=== PATIENT | male | born 1995 | race Caucasian/White ===

== ENCOUNTER 2018-03-02 20:13 | Emergency (ER) | payer OTHER ==
[~2018-03-02] VITALS: Ht 172.7 cm; Wt 81.6 kg
[~2018-03-02 20:13] MED LIST: AMOXICILLIN500 MG PO; BENADRYL25 M2 PO; MOTRIN800 MG PO; NKHM; PREDNISONE20 M1 PO; ZITHROMAX Z PA250 MG PO
== END 2018-03-02 21:53 | disposition home or self-care (01) ==
LOC: ED 20:13
DX: S81.811A Laceration without foreign body, right lower leg, initial encounter (principal); W01.198A Fall on same level from slipping, tripping and stumbling with subsequent striking against other object, initial encounter; Y93.89 Activity, other specified; Y92.017 Garden or yard in single-family (private) house as the place of occurrence of the external cause; Y99.8 Other external cause status